=== PATIENT | female | born 1945 | race African-American/Black ===

== ENCOUNTER 2019-01-25 16:13 | Emergency (ER) | payer MEDICARE ==
--- NOTE | 2019-01-25 17:38 | RAD ---
RADIOGRAPH CHEST 1 VIEW: DATE: 01/25/2019 HISTORY: 73-year-old female with cough FINDINGS: The thoracic aorta is tortuous and ectatic. There is no evidence of airspace density, pulmonary edema , or pneumothorax. The lateral costophrenic angles are not effaced. No cardiomegaly. IMPRESSION: 1) No acute pulmonary findings. 2) ectasia of thoracic aorta.
[2019-01-25 18:10] LABS: #Eosinphils 0.2 thou/uL (0.0-0.7); #Monocytes 0.6 thou/uL (0.11-0.59); #Neutrophils 11.5 thou/uL (1.40-6.50); %Basophils 0.4 % (0.0-1.0); %Eosinophils 1.5 % (0.0-10.0); %Lymphocytes 7.6 % (21.0-51.0); %Monocytes 4.7 % (0.0-10.0); %Neutrophils 85.8 % (42.0-75.0); Hemoglobin 13.7 g/dL (12.0-16.0); Mean Corpuscular HGB CONC 33.1 g/dL (32.0-36.0); Mean Corpuscular Volume 96.7 fL (78.0-98.0); Mean Platelet Volume 10.1 fL (7.4-10.4); Platelet Count 123 thou/uL (130-400); RBC Distribution Width 13.2 % (11.5-14.5); Red Blood Cell (RBC) Count 4.29 mill/uL (4.20-5.40); White Blood Cell (WBC) Count 13.4 thou/uL (4.8-10.8)
[2019-01-25 18:38] LABS: ALT (SGPT) 87 U/L (8-55); AST (SGOT) 133 U/L (5-34); Albumin 4.1 g/dL (3.4-4.8); Alkaline Phosphatase 132 U/L (40-150); Anion Gap 15 mmol/L (10-20); BUN (Urea Nitrogen) 11 mg/dL (9.8-20.1); Bilirubin, Total 1.2 mg/dL (0.2-1.2); Calc. Creatinine Clearance 0 mL/min (70-130); Calcium 10.2 mg/dL (7.8-10.44); Carbon Dioxide 21 mmol/L (23-31); Chloride 105 mmol/L (98-107); Estimated GFR-MDRD 76; Globulin 3.6 g/dL (2.4-3.5); Glucose 117 mg/dL (83-110); Potassium 3.9 mmol/L (3.5-5.1); Protein, Total 7.7 g/dL (6.0-8.3); Sodium 137 mmol/L (136-145)
[2019-01-25 19:09] LABS: Bilirubin Small (Negative); Blood, Urine Small (Negative); Clarity CLEAR (Clear); Glucose, Urine (Dipstick) Negative (Negative); Leukocyte Moderate (Negative); Nitrite Negative (Negative); Protein, Urine (Dipstick) Negative (Neg-Trace); Specific Gravity, Urine 1.019 (1.002-1.036); pH, Urine 5.5 (5.0-9.0)
[2019-01-25 19:23] LABS: Pathc Cast-AUWi Flag 7.61 (0-2.49); Yeast-AUWi Flag 63.2 (0-25.0)
[2019-01-25 19:57] LABS: Hyaline Casts/LPF 0-3 HYALINE CAST LPF (0-3 Hyaline); Other Casts/LPF None Seen LPF (0-3 Hyaline)
[2019-01-25 19:58] LABS: Bacteria/HPF Rare-Few HPF (None Seen); Yeast-All Forms Rare HPF (None Seen)
== END 2019-01-25 21:35 | disposition home or self-care (01) ==
LOC: ERS 16:13
DX: J30.9 Allergic rhinitis, unspecified (principal); N39.0 Urinary tract infection, site not specified; E11.9 Type 2 diabetes mellitus without complications; K21.9 Gastro-esophageal reflux disease without esophagitis; E78.5 Hyperlipidemia, unspecified; I10 Essential (primary) hypertension; F17.210 Nicotine dependence, cigarettes, uncomplicated; Z71.6 Tobacco abuse counseling
CPT/HCPCS: 36415; 71045; 80053; 81003; 81015; 82550; 84484; 85025; 87086; 93005; 99406

== ENCOUNTER 2019-09-21 20:24 | Inpatient (IN) | payer MEDICARE ==
--- NOTE | 2019-09-21 21:31 | RAD ---
ONE VIEW CHEST: 09/21/19 COMPARISON: 01/25/19 HISTORY: Cough and congestion. FINDINGS: Normal cardiac silhouette. Pulmonary vessels and hilum are normal. Costophrenic angles are clear. No masses or consolidation. No pneumothorax or osseous abnormalities. There are coronary artery calcific ations. IMPRESSION: No acute cardiopulmonary process. POS: PPP
[2019-09-21 21:32] LABS: ALT (SGPT) 55 U/L (8-55); AST (SGOT) 82 U/L (5-34); Albumin 4.1 g/dL (3.4-4.8); Alkaline Phosphatase 221 U/L (40-110); Anion Gap 16 mmol/L (10-20); BUN (Urea Nitrogen) 11 mg/dL (9.8-20.1); Bilirubin, Total 1.6 mg/dL (0.2-1.2); Calc. Creatinine Clearance 0 mL/min (70-130); Calcium 10.1 mg/dL (7.8-10.44); Carbon Dioxide 21 mmol/L (23-31); Chloride 103 mmol/L (98-107); Estimated GFR-MDRD 86; Globulin 4.4 g/dL (2.4-3.5); Glucose 127 mg/dL (83-110); Potassium 4.2 mmol/L (3.5-5.1); Protein, Total 8.5 g/dL (6.0-8.3); Sodium 136 mmol/L (136-145)
[2019-09-21] MEDS ORDERED: Acetaminophen 500 MG TAB ONE (21:39)
[2019-09-21 21:50] LABS: Band 23 % (5-11); Eosinophils 3 % (0-10); Hemoglobin 13.7 g/dL (12.0-16.0); Large Platelets SLIGHT; Lymphocytes 3 % (21-51); MDiff Complete? YES; Mean Corpuscular HGB CONC 33.3 g/dL (32.0-36.0); Mean Platelet Volume 11.5 fL (7.4-10.4); Monocytes 4 % (0-10); Neutrophil 67 % (42-75); Platelet Count 88 thou/uL (130-400); Platelet Morphology Comment Appears Decreased; RBC Distribution Width 12.7 % (11.5-14.5); Red Blood Cell (RBC) Count 4.29 mill/uL (4.20-5.40)
[2019-09-21 22:18] LABS: Bilirubin Negative (Negative); Blood, Urine 2+ (Negative); Clarity Turbid (Clear); Glucose, Urine (Dipstick) Normal (Negative); Leukocyte 75 Leu/uL (Negative); Nitrite Negative (Negative); Protein, Urine (Dipstick) 20 mg/dL (Neg-Trace); Urobilinogen 6 mg/dL (Less than 2)
[2019-09-21 22:35] LABS: Bacteria/HPF 1+ HPF (None Seen)
[2019-09-21] MEDS ORDERED: cefTRIAXone\\ROCEPHIN 2 GM VIAL ONE (22:42)
[2019-09-21] MEDS ORDERED: Azithromycin 500 MG VIAL ONE (22:42)
[2019-09-22] MEDS ORDERED: Ondansetron ODT 4 MG TAB SL PRN (00:28)
[2019-09-22] MEDS ORDERED: Ondansetron PF 4 MG/2 ML Vial IVP PRN ×2 (00:28→06:05)
[2019-09-22] MEDS: Sodium Chloride 0.9% 1,000 ML IV SCH ×2 (00:30→10:16)
[2019-09-22 00:35] VITALS: BMI 30.1
[2019-09-22] MEDS ORDERED: Promethazine HCl 12.5 MG in Sodium Chloride 0.9% 50 ML IVPB PRN (06:05)
[2019-09-22] MEDS ORDERED: cloNIDine 0.1 MG TAB PO PRN (06:05)
[2019-09-22] MEDS ORDERED: hydrALAZINE 20 MG/ML VIAL SLOW IVP PRN (06:05)
[2019-09-22] MEDS ORDERED: Acetaminophen 325 MG TAB PO PRN (06:06)
[2019-09-22] MEDS ORDERED: Bisacodyl 10 MG SUPP PR PRN (06:06)
[2019-09-22] MEDS ORDERED: Bisacodyl 5 MG TAB PO PRN (06:06)
[2019-09-22] MEDS ORDERED: HYDROcodone/Acetaminophen 5/325 mg Tablet PO PRN (06:06)
--- NOTE | 2019-09-22 06:10 | PDOC.HHP ---
Hospitalist HPI - History of Present Illness Cough, congestion History of Present Illness: Patient is a 73 year old female with PMH DM, CAD, stent x 2, GERD, HLD, HTN who presents to ED for cough congestion x 2 days, denies known fevers, some myalgia , no chest pain, in ED recorded fever to 100.4, tachycardia noted, CXR checked and no infections noted, EKG w/ sinus tachcardia to 110. wheezing on ER doctors exam, UA positive, given empitic azithromycin and ceftriaoxne, admitted to [facility] service. ED Course: current meds simvastatin WedSep 21, 2019 23:21 KAMRAN Prakash Victoria tablet : Strength - 10 mg : ORAL Patient Dose: UNK. metoprolol succinate WedSep 21, 2019 23:21 KAMRAN Prakash Victoria tablet extended release 24 hr : Strength - 100 mg : ORAL Patient Dose: UNK. Zoloft WedSep 21, 2019 23:22 KAMRAN Prakash Victoria tablet : Strength - 50 mg : ORAL Patient Dose: UNK. isosorbide dinitrate oral WedSep 21, 2019 23:22 KAMRAN Prakash Victoria tablet : Strength - 20 mg : ORAL Patient Dose: UNK. metFORMIN WedSep 21, 2019 23:23 KAMRAN Prakash Victoria tablet : Strength - 500 mg : ORAL Patient Dose: 250 mg Oral once a day (in the morning). aspirin oral WedSep 21, 2019 23:23 KAMRAN Prakash [place] TABLET : Strength - 81 mg : ORAL Patient Dose: 1 tab(s) Oral once a day. Vitamin D3 WedSep 21, 2019 23:23 KAMRAN Prakash Victoria TABLET : Strength - 1,000 unit : ORAL Patient Dose: UNK. VITAL SIGNS WedSep 21, 2019 23:43 KAMRAN Prakash Victoria BP: 114/75 MAP: 88 Pulse: 91 Resp: 19 Temp: 98.5 (Oral) Pain: 0 O2 sat: 96 on (Room Air) Time: 09/21/2019 23:43. Hospitalist ROS - Review of Systems Constitutional: reports: chills. denies: fever Eyes: denies: vision change, redness ENT: reports: nose congestion, throat pain Respiratory: reports: cough. denies: shortness of breath, pleuritic pain Cardiovascular: denies: chest pain, palpitations Gastrointestinal: denies: nausea, vomiting, abdominal pain Genitourinary: denies: dysuria, frequency Musculoskeletal: reports: neck pain, shoulder pain Neurological: denies: weakness, numbness, incoordination, change in speech, seizures All other systems reviewed; all pertinent +/- noted in HPI/Subj - Medication Medications: Active Medications Generic Name Dose Route Start Last Admin Trade Name Freq PRN Reason Stop Dose Admin Sodium Chloride 1,000 mls @ 100 mls/hr 09/22/19 00:28 09/22/19 00:30 Normal Saline 0.9% IV 09/22/19 11:00 Not Given .Q10H [facility] Hospitalist History - Past Medical History Other Medical History: DM, CAD, stent x 2, GERD, HLD, HTN - Past Surgical History Past Surgical History: reports: Cholecystectomy, Hysterectomy - Family History Family History: reports: no pertinent history - Social History Other Social History: Patient currently uses tobacco, smokes cigarettes, 2 cig per day, Patient denies alcohol use, Patient denies drug use. - Exam General Appearance: NAD, awake alert Eye: PERRL, anicteric sclera ENT: normocephalic atraumatic, no oropharyngeal lesions, moist mucosa Neck: supple, symmetric, no JVD, no thyromegaly, no lymphadenopathy, no carotid bruit Heart: RRR, no murmur, no gallops, no rubs, normal peripheral pulses Respiratory: CTAB, no rales, no ronchi, normal chest expansion, no tachypnea, normal percussion, wheezes. negative: no wheezes Gastrointestinal: soft, non-tender, non-distended, normal bowel sounds, no palpable masses, no hepatomegaly, no splenomegaly, no bruit Extremities: no cyanosis, no clubbing, no edema Skin: normal turgor, no lesions, no rashes Neurological: cranial nerve grossly intact, normal sensation to touch, no weakness, no focal deficits, no new deficit Musculoskeletal: normal tone, normal strength, no muscle wasting Psychiatric: normal affect, normal behavior, A&O x 3 Hospitalist Results - Labs Result Diagrams: 09/21/19 20:45 09/21/19 20:45 Lab results: WBC 14.0 thou/uL (4.8-10.8) H 09/21/19 20:45 Hgb 13.7 g/dL (12.0-16.0) 09/21/19 20:45 Hct 41.2 % (36.0-47.0) 09/21/19 20:45 MCV 96.0 fL (78.0-98.0) 09/21/19 20:45 Plt Count 88 thou/uL (130-400) L 09/21/19 20:45 Band Neuts % (Manual) 23 % (5-11) H 09/21/19 20:45 Sodium 136 mmol/L (136-145) 09/21/19 20:45 Potassium 4.2 mmol/L (3.5-5.1) 09/21/19 20:45 Chloride 103 mmol/L (98-107) 09/21/19 20:45 Carbon Dioxide 21 mmol/L (23-31) L 09/21/19 20:45 BUN 11 mg/dL (9.8-20.1) 09/21/19 20:45 Creatinine 0.79 mg/dL (0.6-1.1) 09/21/19 20:45 Glucose 127 mg/dL (83-110) H 09/21/19 20:45 Lactic Acid 1.5 mmol/L (0.5-2.2) 09/21/19 20:45 Calcium 10.1 mg/dL (7.8-10.44) 09/21/19 20:45 Total Bilirubin 1.6 mg/dL (0.2-1.2) H 09/21/19 20:45 AST 82 U/L (5-34) H 09/21/19 20:45 ALT 55 U/L (8-55) 09/21/19 20:45 Alkaline Phosphatase 221 U/L (40-110) H 09/21/19 20:45 Serum Total Protein 8.5 g/dL (6.0-8.3) H 09/21/19 20:45 Albumin 4.1 g/dL (3.4-4.8) 09/21/19 20:45 Urine Ketones 60 mg/dL (Negative) A 09/21/19 22:05 Urine Blood 2+ (Negative) A 09/21/19 22:05 Urine Nitrite Negative (Negative) 09/21/19 22:05 Ur Leukocyte Esterase 75 Susie/uL (Negative) A 09/21/19 22:05 Urine RBC 11-20 HPF (0-3) A 09/21/19 22:05 Urine WBC 11-20 HPF (0-3) A 09/21/19 22:05 Ur Squamous Epith Cells 7-10 HPF (0-3) A 09/21/19 22:05 Urine Bacteria 1+ HPF (None Seen) A 09/21/19 22:05 Hospitalist H&P A/P - Plan Plan: Patient is a 73 year old female with PMH DM, CAD, stent x 2, GERD, HLD, HTN who presents to ED for cough congestion x 2 days # wheezing - possible COPD or asthma/reactive airway w/ mild exacerbation, CXR without explanation - continue azithromycin - PO steroids x 5 days - duoneb PRN # UTi - continue ceftriaxone, follow cultures # sepsis - leukocytosis, tachycardia, fever, suspct due to UTI, treat as above, follow up cultures # DM - SSI order set # CAD s/p stent - resume home meds when med rec complete, no chest pain # GERD - PPI BID # HTN - continue home meds once med rec complete, PRN orders in place. # hypothyroidism - continue synthroid, check labs
[2019-09-22] MEDS ORDERED: Simvastatin 20 MG TAB PO SCH ×2 (09:00→21:00)
[2019-09-22] MEDS: Aspirin 81 mg Enteric Coated Tablet PO SCH (09:10)
[2019-09-22] MEDS: Loratadine 10 MG TAB PO SCH (09:11)
[2019-09-22] MEDS: Azithromycin 250 MG TAB PO SCH (09:11)
[2019-09-22] MEDS: Isosorbide Dinitrate 20 MG TAB PO SCH ×2 (09:13→20:40)
[2019-09-22] MEDS: metFORMIN 500 MG TAB PO SCH (09:16)
[2019-09-22] MEDS: Polyethylene Glycol 3350 17 GM Packet PO SCH (09:18)
[2019-09-22] MEDS: Enoxaparin Sodium 40 MG/0.4 ML SYRINGE SC SCH (10:32)
--- NOTE | 2019-09-22 13:25 | PDOC.HOSPP ---
- Subjective Encounter Date: 09/22/19 Encounter Time: 13:24 Subjective: Ms. Zaragoza was seen today in follow-up of cough and congestion and UTI. She notes feeling better, but still has a cough productive of cummings sputum. - Objective Vital Signs & Weight: Vital Signs (12 hours) Temp Pulse Resp BP BP Pulse Ox 09/22/19 08:06 88 18 100 09/22/19 08:00 97.9 F 85 16 114/78 100 09/22/19 05:17 98.2 F 82 20 107/70 95 09/22/19 04:28 97 Weight Weight 181 lb 1.6 oz Result Diagrams: 09/21/19 20:45 09/21/19 20:45 Additional Labs: Accuchecks 09/22/19 00:33 POC Glucose 122 H Hospitalist ROS - Medication Medications: Active Medications Generic Name Dose Route Start Last Admin Trade Name Freq PRN Reason Stop Dose Admin Albuterol/Ipratropium 3 ml 09/22/19 07:00 09/22/19 12:38 Duoneb IPPB Not Given [id number] FAHEEM Aspirin 81 mg 09/22/19 09:00 09/22/19 09:10 Ecotrin PO 81 mg DAILY FAHEEM Administration Azithromycin 250 mg 09/22/19 09:00 09/22/19 09:11 Zithromax PO 09/25/19 09:01 250 mg DAILY FAHEEM Administration Cholecalciferol 1,000 units 09/22/19 09:00 09/22/19 09:12 Vitamin D3 PO 1,000 units DAILY FAHEEM Administration Enoxaparin Sodium 40 mg 09/22/19 09:00 09/22/19 10:32 Lovenox SC Not Given 0900 FAHEEM Isosorbide Dinitrate 20 mg 09/22/19 09:00 09/22/19 09:13 Isordil PO 20 mg BID FAHEEM Administration Loratadine 10 mg 09/22/19 09:00 09/22/19 09:11 Claritin PO 10 mg DAILY FAHEEM Administration Metformin HCl 250 mg 09/22/19 08:00 09/22/19 09:16 Glucophage PO 250 mg QAM-WM FAHEEM Administration Pantoprazole Sodium 40 mg 09/22/19 09:00 09/22/19 09:11 Protonix PO 40 mg DAILY FAHEEM Administration Polyethylene Glycol 17 gm 09/22/19 09:00 09/22/19 09:18 Miralax PO 17 gm DAILY FAHEEM Administration - Exam Eye: PERRL Heart: RRR, no murmur, no gallops, no rubs, normal peripheral pulses Respiratory: no rales, rhonchi, wheezes (+ wheezing and rhonchi bilaterally, no rales) Gastrointestinal: soft, non-tender, non-distended, normal bowel sounds, no palpable masses, no hepatomegaly Extremities: no cyanosis, no clubbing, no edema Hosp A/P (1) Acute bronchitis Code(s): J20.9 - ACUTE BRONCHITIS, UNSPECIFIED Status: Acute (2) UTI (urinary tract infection) Status: Acute (3) Hyperlipidemia Code(s): E78.5 - HYPERLIPIDEMIA, UNSPECIFIED Status: Acute (4) Hypertension Code(s): I10 - ESSENTIAL (PRIMARY) HYPERTENSION Status: Acute (5) CAD (coronary artery disease) Code(s): I25.10 - ATHSCL HEART DISEASE OF [place] CORONARY ARTERY W/O ANG PCTRS Status: Acute - Plan * Acute Bronchitis- continue Azithromycin and Rocephin * UTI- urine culture is pending- Rocephin should be sufficient for empiric coverage * HTN- blood pressure is stable * CAD- stable * Anticipate discharge home tomorrow
[2019-09-22] MEDS: Fluticasone Propionate Nasal Spray 16 gm Bottle NASAL SCH (14:44)
[2019-09-23] MEDS ORDERED: cefTRIAXone\\ROCEPHIN 1 GM in Sodium Chloride 0.9% 100 ML IVPB SCH (01:00)
[2019-09-23 06:26] LABS: ALT (SGPT) 32 U/L (8-55); AST (SGOT) 34 U/L (5-34); Albumin 3.4 g/dL (3.4-4.8); Alkaline Phosphatase 180 U/L (40-110); Anion Gap 14 mmol/L (10-20); BUN (Urea Nitrogen) 7 mg/dL (9.8-20.1); Bilirubin, Direct 0.2 mg/dL (0.1-0.3); Bilirubin, Total 0.6 mg/dL (0.2-1.2); Calc. Creatinine Clearance 98 mL/min (70-130); Carbon Dioxide 21 mmol/L (23-31); Chloride 108 mmol/L (98-107); Estimated GFR-MDRD Greater than 90; Glucose 114 mg/dL (83-110); Sodium 139 mmol/L (136-145)
[2019-09-23 06:41] LABS: Band 12 % (5-11); Eosinophils 7 % (0-10); Hemoglobin 12.3 g/dL (12.0-16.0); Lymphocytes 17 % (21-51); MDiff Complete? YES; Mean Corpuscular HGB CONC 32.5 g/dL (32.0-36.0); Mean Corpuscular Hemoglobin 30.9 pg (27.0-31.0); Mean Corpuscular Volume 95.1 fL (78.0-98.0); Mean Platelet Volume 11.9 fL (7.4-10.4); Monocytes 10 % (0-10); Neutrophil 54 % (42-75); Platelet Count 90 thou/uL (130-400); Platelet Morphology Comment Appears Decreased; RBC Distribution Width 12.8 % (11.5-14.5); Red Blood Cell (RBC) Count 3.99 mill/uL (4.20-5.40); White Blood Cell (WBC) Count 8.2 thou/uL (4.8-10.8)
[2019-09-23 06:45] LABS: HBCM Index 0.05 S/CO (0-0.79); Hep A IgM AB Non-Reactive (NonReactive); Hep A IgM S/CO 0.29 S/CO (0-0.79); Hep B Surf Ag Non-Reactive S/CO (NonReactive); Hep C IgG Ab Non-Reactive (NonReactive); Hep C Index 0.35 S/CO (0-0.79); Hepatitis B Core IgM Abs Non-Reactive (NonReactive)
[2019-09-23] MEDS: metFORMIN 500 MG TAB PO SCH (07:57)
[2019-09-23] MEDS: Azithromycin 250 MG TAB PO SCH (07:58)
[2019-09-23] MEDS: Isosorbide Dinitrate 20 MG TAB PO SCH (07:58)
[2019-09-23] MEDS: Aspirin 81 mg Enteric Coated Tablet PO SCH (07:58)
[2019-09-23] MEDS: Loratadine 10 MG TAB PO SCH (07:59)
[2019-09-23] MEDS: Fluticasone Propionate Nasal Spray 16 gm Bottle NASAL SCH (08:01)
[2019-09-23] MEDS: Polyethylene Glycol 3350 17 GM Packet PO SCH (08:01)
[2019-09-23] MEDS: Enoxaparin Sodium 40 MG/0.4 ML SYRINGE SC SCH (08:02)
--- NOTE | 2019-09-23 09:45 | ULT ---
Right upper quadrant ultrasound: 09/23/2019 HISTORY: Abnormal liver function tests TECHNIQUE: Multiplanar grayscale sonographic imaging of the right upper quadrant obtained. FINDINGS: The imaged pancreas is grossly unremarkable. However, the head and the tail of the pancreas are obscured by bowel gas. No focal liver lesion or intrahepatic biliary dilatation is seen. Gallbladder is nonvisualized on this examination. Question prior cholecystectomy. Common bile duct measures 6 mm in transverse dimension, upper limits of normal. Right kidney measures 9.2 cm in craniocaudal dimension. Right renal cyst noted measuring up to 3.6 cm . IMPRESSION: Question prior cholecystectomy. No acute findings.
--- NOTE | 2019-09-23 11:05 | RAD ---
2 view chest: [09/23/2019] Comparison:09/21/2019 HISTORY: Cough, shortness of breath FINDINGS: Stable increased linear interstitial density and pulmonary hyperinflation. No pneumothorax or pleural fluid. No focal consolidation or alveolar edema. Cholecystectomy clips are present. Coronary arterial stent material is seen on the left. IMPRESSION: Stable chronic findings as above.
--- NOTE | 2019-09-23 14:00 | EKG ---
Test Reason : Blood Pressure : / mmHG Vent. Rate : 110 BPM Atrial Rate : 110 BPM P-R Int : 140 ms QRS Dur : 090 ms QT Int : 350 ms P-R-T Axes : 077 -58 039 degrees QTc Int : 473 ms Sinus tachycardia Possible Left atrial enlargement Left axis deviation Confirmed by TRINA BARBOSA DO ([id number]), pictures editor GIANLUCA CADET ([id number]) on 09/23/2019 2:00:00 PM Referred By: Confirmed By:TRINA BARBOSA DO
[2019-09-23 17:38] VITALS: BP 123/79; TEMP 98.7
--- NOTE | 2019-09-24 09:35 | DIS ---
DATE OF ADMISSION: 09/21/2019 DATE OF DISCHARGE: 09/23/2019 DISCHARGE DISPOSITION: Home. FOLLOWUP: Follow up with primary care physician, Dr. Kaz Whitt in 1 week. DISCHARGE MEDICATIONS: 1. Omnicef 300 mg twice daily for next five days. 2. Azithromycin 250 mg daily for next three days. All other home medications were left unchanged. The patient was seen and examined on the day of discharge. Denies any new complaints. Shortness of breath and coughing are significantly improved. SIGNIFICANT LABORATORY DATA: WBC on admission 14.0 with 23% bandemia. Two days later, WBC was 8.2. Total bilirubin on admission was 1.6 with AST of 82, ALT of 55, alkaline phosphatase 221. At discharge, total bilirubin was 0.6 with AST of 34, ALT of 32, alkaline phosphorus of 180. Hepatitis profile was negative. Urinalysis showed 11 to 20 wbc's with 1+ bacteria. Urine cultures showed 50,000 to 75,000 mixed skin tony. Influenza testing was negative. IMAGING STUDIES: 1. Chest x-ray showed increased bronchopulmonary markings. 2. Abdominal ultrasound was negative for biliary obstruction. The patient is status post cholecystectomy. BRIEF HOSPITAL COURSE: The patient is a 73-year-old female with diabetes mellitus type 2, coronary artery disease, hypertension, hyperlipidemia, and obesity, presented to the emergency room with fever, cough, along with congestion of 2 days duration. Workup was consistent with suspected pneumonia. Temperature in the emergency room was 100.4 with WBC of 14.0. Please refer to the history and physical for details. The patient was admitted to the hospital with a diagnosis of acute bronchitis with suspected pneumonia. She was started on ceftriaxone with azithromycin with good improvement. Her shortness of breath, coughing, and fever have significantly improved. She is requesting to be discharged. She probably appears stable for discharge. She will continue antibiotics as outpatient. She will benefit from a repeat chest x-ray as outpatient. The patient also had abnormal LFTs on admission that has significantly improved. Right upper quadrant ultrasound was negative for choledocholithiasis or biliary duct dilatation. FINAL DIAGNOSES: 1. Severe sepsis secondary to bronchopneumonia present on admission. 2. Suspected acute bronchitis. 3. Abnormal LFTs probably secondary to sepsis, present on admission improved. 4. Obesity with a BMI of 30.1. 5. Diabetes mellitus type 2. 6. Suspected urinary tract infection present on admission. 7. Metabolic acidosis secondary to sepsis. 8. Hypertension. 9. Hyperlipidemia. 10. Coronary artery disease. Time coordinating the discharge of this patient was 33 minutes. She was advised to return to emergency room if her symptoms worsen. The patient understands the above plan of care. Job ID: [id number]
== END 2019-09-23 17:39 | disposition home or self-care (01) | DRG 871 ==
LOC: ERS 20:24 → T4-B 23:11
PROVIDERS: ADMIT Internal Medicine; ATTEND Internal Medicine
DX: A41.9 Sepsis, unspecified organism (principal); J18.0 Bronchopneumonia, unspecified organism; N39.0 Urinary tract infection, site not specified; E87.2 Acidosis; R65.20 Severe sepsis without septic shock; I25.10 Atherosclerotic heart disease of native coronary artery without angina pectoris; E78.5 Hyperlipidemia, unspecified; I10 Essential (primary) hypertension; J20.9 Acute bronchitis, unspecified; F17.210 Nicotine dependence, cigarettes, uncomplicated; K21.9 Gastro-esophageal reflux disease without esophagitis; E66.9 Obesity, unspecified; E11.9 Type 2 diabetes mellitus without complications; E78.00 Pure hypercholesterolemia, unspecified; Z90.710 Acquired absence of both cervix and uterus; Z90.49 Acquired absence of other specified parts of digestive tract; Z68.30 Body mass index [BMI] 30.0-30.9, adult; Z79.4 Long term (current) use of insulin; Z95.5 Presence of coronary angioplasty implant and graft
CPT/HCPCS: 36415; 36416; 71045; 71046; 76705; 80048; 80053; 80074; 80076; 81003; 81015; 83605; 85025; 87086; 87804; 93005; 94640; 96361; 96365; 96375; J0456; J0696; J1650; J3490; J7620

== ENCOUNTER 2021-02-19 19:27 | Inpatient (IN) | payer MEDICARE ==
[~2021-02-19 19:27] MED LIST: Iopamidol 370 76% 100 ML VIAL ONE
[2021-02-19 20:44] LABS: #Basophils 0.1 thou/uL (0.0-0.2); #Eosinphils 0.2 thou/uL (0.0-0.7); #Lymphocytes 2.1 thou/uL (1.20-3.40); #Monocytes 0.8 thou/uL (0.11-0.59); #Neutrophils 3.3 thou/uL (1.40-6.50); %Basophils 1.1 % (0.0-1.0); %Eosinophils 3.4 % (0.0-10.0); %Monocytes 12.5 % (0.0-10.0); %Neutrophils 51.1 % (42.0-75.0); Hemoglobin 13.3 g/dL (12.0-16.0); Mean Corpuscular HGB CONC 33.2 g/dL (32.0-36.0); Mean Corpuscular Hemoglobin 31.3 pg (27.0-31.0); Mean Corpuscular Volume 94.3 fL (78.0-98.0); Mean Platelet Volume 11.3 fL (7.4-10.4); Platelet Count 101 thou/uL (130-400); RBC Distribution Width 12.7 % (11.5-14.5); Red Blood Cell (RBC) Count 4.25 mill/uL (4.20-5.40); White Blood Cell (WBC) Count 6.4 thou/uL (4.8-10.8)
[2021-02-19 21:35] LABS: ALT (SGPT) 26 U/L (8-55); AST (SGOT) 29 U/L (5-34); Albumin 3.7 g/dL (3.4-4.8); Alkaline Phosphatase 89 U/L (40-110); Anion Gap 16 mmol/L (10-20); BUN (Urea Nitrogen) 9 mg/dL (9.8-20.1); Bilirubin, Total 0.3 mg/dL (0.2-1.2); Calc. Creatinine Clearance 0 mL/min (70-130); Calcium 9.6 mg/dL (7.8-10.44); Carbon Dioxide 22 mmol/L (23-31); Chloride 106 mmol/L (98-107); Globulin 3.8 g/dL (2.4-3.5); Glucose 157 mg/dL (83-110); Lipase 18 U/L (8-78); Potassium 3.6 mmol/L (3.5-5.1); Protein, Total 7.5 g/dL (5.8-8.1); Sodium 140 mmol/L (136-145)
[2021-02-19 23:13] LABS: Troponin I Less than 0.010 ng/mL (< 0.028)
[2021-02-19] MEDS ORDERED: Piperacillin/Tazobactam 4.5 GM VIAL ONE (23:36)
[2021-02-20 00:26] LABS: Lactic Acid 0.9 mmol/L (0.5-2.2)
[2021-02-20 01:16] LABS: Bacteria/HPF None Seen HPF (None Seen); Bilirubin Negative (Negative); Blood, Urine 1+ (Negative); Clarity Clear (Clear); Glucose, Urine (Dipstick) Normal (Negative); Ketone, Urine Negative (Negative); Leukocyte Negative Leu/uL (Negative); Nitrite Negative (Negative); Protein, Urine (Dipstick) Negative (Neg-Trace); Squamous Epithelial 0-3 HPF (0-3); Urobilinogen Normal mg/dL (Less than 2); WBC/HPF 0-3 HPF (0-3); pH, Urine 5.5 (5.0-9.0)
[2021-02-20 01:17] LABS: Specific Gravity, Urine 1.057 (1.002-1.036)
[2021-02-20] MEDS ORDERED: Morphine 2 MG/ML VIAL SLOW IVP PRN (01:51)
[2021-02-20] MEDS ORDERED: Promethazine HCl 12.5 MG in Sodium Chloride 0.9% 50 ML IVPB PRN (01:51)
[2021-02-20] MEDS ORDERED: Ondansetron PF 4 MG/2 ML Vial IVP PRN (01:51)
[2021-02-20] MEDS ORDERED: Acetaminophen 325 MG TAB PO PRN (01:51)
[2021-02-20] MEDS ORDERED: Labetalol HCl 100 MG/20 ML VIAL SLOW IVP PRN (01:51)
[2021-02-20] MEDS ORDERED: hydrALAZINE 20 MG/ML VIAL SLOW IVP PRN (01:51)
[2021-02-20] MEDS ORDERED: cloNIDine 0.1 MG TAB PO PRN (01:51)
[2021-02-20] MEDS ORDERED: Guaifenesin DM 100-10/5 ML UDCUP PO PRN (01:51)
[2021-02-20] MEDS ORDERED: Electrolyte Replacement Protocol 1 EACH FS SCH (02:00)
[2021-02-20] MEDS ORDERED: Dextrose 5% in Water 1,000 ML IV PRN (02:03)
[2021-02-20] MEDS ORDERED: Dextrose 50% Abboject 50 ML SYRINGE SLOW IVP PRN (02:03)
[2021-02-20] MEDS ORDERED: HumaLOG 300 UNITS/3 ML VIAL SC PRN (02:03)
[2021-02-20] MEDS: Sodium Chloride 0.9% 1,000 ML IV SCH ×3 (02:31→22:14)
[2021-02-20 02:39] VITALS: BMI 30.8
[2021-02-20] MEDS: Piperacillin/Tazobactam 3.375 GM in Sodium Chloride 0.9% 100 ML IVPB SCH ×3 (06:32→18:03)
[2021-02-20 06:46] LABS: Free T4 (Free Thyroxine) 2.58 ng/dL (0.70-1.48); Thyroid Stimulating Hormone Less than 0.0025 uIU/mL (0.35-4.94)
[2021-02-20] MEDS: Saccharomyces boulardii 250 MG CAP PO SCH (08:15)
[2021-02-20 11:38] LABS: SARS-CoV-2 PCR by NAA Not Detected (NotDetected)
[2021-02-20] MEDS ORDERED: Polyethylene Glycol 3350 17 GM Packet PO SCH (17:00)
[2021-02-20] MEDS ORDERED: Enoxaparin Sodium 40 MG/0.4 ML SYRINGE SC SCH (21:00)
[2021-02-21] MEDS: Piperacillin/Tazobactam 3.375 GM in Sodium Chloride 0.9% 100 ML IVPB SCH ×2 (00:49→06:06)
[2021-02-21] MEDS: Sodium Chloride 0.9% 1,000 ML IV SCH ×2 (00:50→08:22)
[2021-02-21 06:24] LABS: Hemoglobin 11.9 g/dL (12.0-16.0); Mean Corpuscular HGB CONC 32.5 g/dL (32.0-36.0); Mean Corpuscular Hemoglobin 30.8 pg (27.0-31.0); Mean Corpuscular Volume 94.7 fL (78.0-98.0); Mean Platelet Volume 11.2 fL (7.4-10.4); Platelet Count 93 thou/uL (130-400); RBC Distribution Width 12.6 % (11.5-14.5); Red Blood Cell (RBC) Count 3.85 mill/uL (4.20-5.40); White Blood Cell (WBC) Count 5.3 thou/uL (4.8-10.8)
[2021-02-21 06:28] LABS: Anion Gap 8 mmol/L (10-20); BUN (Urea Nitrogen) 5 mg/dL (9.8-20.1); Calc. Creatinine Clearance 151 mL/min (70-130); Calcium 9.1 mg/dL (7.8-10.44); Carbon Dioxide 23 mmol/L (23-31); Chloride 111 mmol/L (98-107); Glucose 98 mg/dL (83-110); Magnesium 1.8 mg/dL (1.6-2.6); Potassium 3.4 mmol/L (3.5-5.1); Sodium 139 mmol/L (136-145)
[2021-02-21 06:46] LABS: MDiff Complete? YES
[2021-02-21 06:47] LABS: Eosinophils 5 % (0-10); Lymphocytes 31 % (21-51); Monocytes 17 % (0-10); Neutrophil 46 % (42-75); Platelet Morphology Comment Appears Decreased
[2021-02-21] MEDS ORDERED: Potassium Chloride 20 MEQ TAB PO SCH (07:00)
[2021-02-21] MEDS ORDERED: Magnesium 2 GM/50 ML 2 GM in Premix Bag 1 BAG IVPB SCH (07:00)
[2021-02-21] MEDS: Saccharomyces boulardii 250 MG CAP PO SCH (08:10)
[2021-02-21] MEDS ORDERED: Polyethylene Glycol 3350 17 GM Packet PO SCH (09:00)
[2021-02-21] MEDS ORDERED: Calcium Carbonate 500 MG ChewTAB PO PRN (10:54)
[2021-02-21 11:53] VITALS: BP 129/80; TEMP 98.6
[2021-02-21] MEDS ORDERED: Amoxicillin/Potassium Clav 875 MG TAB PO SCH (21:00)
[2021-02-22] MEDS ORDERED: Potassium Chloride 20 MEQ TAB PO SCH (19:30)
== END 2021-02-21 14:53 | disposition home or self-care (01) | DRG 392 ==
LOC: ERS 19:27 → T4-B 23:59
PROVIDERS: ADMIT Internal Medicine; ATTEND Internal Medicine
DX: K57.32 Diverticulitis of large intestine without perforation or abscess without bleeding (principal); E86.0 Dehydration; Z20.822 Contact with and (suspected) exposure to COVID-19; E11.9 Type 2 diabetes mellitus without complications; I25.10 Atherosclerotic heart disease of native coronary artery without angina pectoris; K21.9 Gastro-esophageal reflux disease without esophagitis; I10 Essential (primary) hypertension; R15.9 Full incontinence of feces; Z88.5 Allergy status to narcotic agent; Z79.899 Other long term (current) drug therapy; Z79.51 Long term (current) use of inhaled steroids; Z79.84 Long term (current) use of oral hypoglycemic drugs; Z79.82 Long term (current) use of aspirin; Z90.49 Acquired absence of other specified parts of digestive tract; Z90.710 Acquired absence of both cervix and uterus
CPT/HCPCS: 36415; 36416; 51701; 74177; 80048; 80053; 81003; 81015; 83605; 83690; 83735; 84439; 84443; 84484; 85025; 87040; 87086; 93005; 94640; 96365; J1650; J2543; J3475; J3490; J7620; Q9967; U0003; U0005

== ENCOUNTER 2021-02-22 13:58 | Emergency (ER) | payer MEDICARE ==
[2021-02-22 14:47] LABS: #Eosinphils 0.1 thou/uL (0.0-0.7); #Monocytes 0.6 thou/uL (0.11-0.59); #Neutrophils 4.5 thou/uL (1.40-6.50); %Basophils 0.6 % (0.0-1.0); %Eosinophils 2.4 % (0.0-10.0); %Lymphocytes 15.9 % (21.0-51.0); %Monocytes 9.4 % (0.0-10.0); %Neutrophils 71.8 % (42.0-75.0); Hemoglobin 12.3 g/dL (12.0-16.0); Mean Corpuscular HGB CONC 33.5 g/dL (32.0-36.0); Mean Corpuscular Hemoglobin 31.6 pg (27.0-31.0); Mean Corpuscular Volume 94.3 fL (78.0-98.0); Mean Platelet Volume 10.8 fL (7.4-10.4); Platelet Count 96 thou/uL (130-400); RBC Distribution Width 12.6 % (11.5-14.5); White Blood Cell (WBC) Count 6.3 thou/uL (4.8-10.8)
[2021-02-22 15:06] LABS: ALT (SGPT) 19 U/L (8-55); AST (SGOT) 27 U/L (5-34); Albumin 3.4 g/dL (3.4-4.8); Alkaline Phosphatase 77 U/L (40-110); BUN (Urea Nitrogen) 5 mg/dL (9.8-20.1); Bilirubin, Total 0.6 mg/dL (0.2-1.2); Calc. Creatinine Clearance 0 mL/min (70-130); Calcium 9.1 mg/dL (7.8-10.44); Carbon Dioxide 21 mmol/L (23-31); Chloride 110 mmol/L (98-107); Globulin 2.8 g/dL (2.4-3.5); Glucose 108 mg/dL (83-110); Potassium 4.1 mmol/L (3.5-5.1); Protein, Total 6.2 g/dL (5.8-8.1); Sodium 143 mmol/L (136-145)
[2021-02-22 15:07] LABS: Anion Gap 16 mmol/L (10-20)
[2021-02-22] MEDS ORDERED: Ondansetron PF 4 MG/2 ML Vial ONE (16:09)
[2021-02-22 16:31] LABS: Bacteria/HPF None Seen HPF (None Seen); Bilirubin Negative (Negative); Blood, Urine Trace (Negative); Clarity Clear (Clear); Glucose, Urine (Dipstick) Normal (Negative); Ketone, Urine 10 mg/dL (Negative); Leukocyte Negative Leu/uL (Negative); Nitrite Negative (Negative); Protein, Urine (Dipstick) Negative (Neg-Trace); RBC/HPF 0-3 HPF (0-3); Specific Gravity, Urine 1.009 (1.002-1.036); Urobilinogen Normal mg/dL (Less than 2); WBC/HPF 0-3 HPF (0-3); pH, Urine 5.5 (5.0-9.0)
[2021-02-22] MEDS ORDERED: Aspirin Chewable 81 MG TAB ONE (16:45)
== END 2021-02-22 19:53 | disposition short-term general hospital (02) ==
LOC: ERS 13:58
DX: R07.89 Other chest pain (principal); E11.9 Type 2 diabetes mellitus without complications; K21.9 Gastro-esophageal reflux disease without esophagitis; E78.5 Hyperlipidemia, unspecified; E78.00 Pure hypercholesterolemia, unspecified; I10 Essential (primary) hypertension; Z79.84 Long term (current) use of oral hypoglycemic drugs; Z79.899 Other long term (current) drug therapy
CPT/HCPCS: 36415; 71045; 80053; 81003; 81015; 83880; 84484; 85025; 93005; 93010; J2405

== ENCOUNTER 2021-02-22 20:39 | Emergency (ER) | payer MEDICARE ==
[2021-02-22] MEDS ORDERED: Meclizine HCl 25 MG TAB ONE (23:21)
[2021-02-22] MEDS ORDERED: Ondansetron ODT 8 MG TAB ONE (23:21)
== END 2021-02-23 01:42 | disposition home or self-care (01) ==
LOC: ERS 20:39
DX: R42 Dizziness and giddiness (principal); R11.2 Nausea with vomiting, unspecified; E11.9 Type 2 diabetes mellitus without complications; E78.5 Hyperlipidemia, unspecified; E78.00 Pure hypercholesterolemia, unspecified; K21.9 Gastro-esophageal reflux disease without esophagitis
CPT/HCPCS: 36415; 71045; 80053; 81003; 81015; 83880; 84484; 85025; 93005; 93010; 96374; J2405; Q0162

== ENCOUNTER 2021-03-24 14:46 | Emergency (ER) | payer MEDICARE | END 2021-03-24 17:59 | disposition home or self-care (01) | LOC: ERS 14:46 | DX: R00.0 Tachycardia, unspecified (principal); R11.2 Nausea with vomiting, unspecified; E11.9 Type 2 diabetes mellitus without complications; K21.9 Gastro-esophageal reflux disease without esophagitis; E78.5 Hyperlipidemia, unspecified; I10 Essential (primary) hypertension | CPT/HCPCS: 36415; 71275; 80053; 83605; 83690; 84484; 85025; 93005; Q9967 ==